=== PATIENT | female | born 1980 | race Caucasian/White ===

== ENCOUNTER 2018-10-04 15:10 | Emergency (ER) | payer OTHER ==
[2018-10-04 15:36] VITALS: BP 116/83; PULSE 98; O2SAT 100
[2018-10-04] MEDS ORDERED: solu-MEDROL 125 MG IM ONE (15:49)
[2018-10-04] MEDS ORDERED: solu-MEDROL 125 MG ONE (15:50)
--- NOTE | 2018-10-04 15:54 | ERPHSYRPT ---
- History of Present Illness Time Seen by Provider: 10/04/18 15:44 Source: patient Exam Limitations: no limitations Patient Subjective Stated Complaint: sore throat Triage Nursing Assessment: Pt c/o of throat pain x2 days, painful to swallow, swollen lymph nodes in neck, vitals wnl, rates pain 4/10, throat is red and swollen with white puscules, last intake was lunch yesterday, unable to drink any fluids Physician History: 38-year-old white female arrives with complaint of pain in her throat pain with swallowing in her throat feels like her throat has been swelling symptoms for 2 days no fevers some nausea no vomiting no shortness of breath. Past medical history: Patient denies Past surgical history includes cholecystectomy, exploratory laparotomy, tubal ligation, partial amputation of her thumb Social history positive tobacco use positive occasional alcohol use positive use of opioids in the past states clean at present Timing/Duration: day(s) (2 days) Severity: moderate Modifying Factors: Improves With: nothing Associated Symptoms: other (sore throat pain with swallowing feels like throat is swelling), No nausea, No vomiting, No abdominal pain, No shortness of breath , No heartburn, No diaphoresis, No cough, No chills, No chest pain, No fever, No headaches, No loss of appetite, No malaise, No rash, No syncope, No seizure, No weakness Allergies/Adverse Reactions: No Known Drug Allergies Allergy (Verified 10/04/18 15:36) Hx Influenza Vaccination/Date Given: No - Review of Systems Constitutional: No Fever, No Chills Eyes: No Symptoms Ears, Nose, & Throat: Throat Pain, Throat Swelling, Painful Swallowing, No Ear Pain, No Ear Discharge, No Hearing Changes, No Tinnitus, No Nose Pain, No Nose Congestion, No Nose Discharge, No Sinus Drainage, No Epistaxis, No Mouth Pain, No Mouth Swelling, No Loose Teeth, No Hoarse, No Snoring, No Stridor Respiratory: No Cough, No Dyspnea Cardiac: No Chest Pain, No Edema, No Syncope Abdominal/Gastrointestinal: Other (eating less because of throat pain), No Abdominal Pain, No Nausea, No Vomiting, No Diarrhea Musculoskeletal: No Back Pain, No Neck Pain Skin: No Rash Neurological: No Dizziness, No Focal Weakness, No Sensory Changes Psychological: No Symptoms Endocrine: No Symptoms All Other Systems: Reviewed and Negative - Past Medical History Pertinent Past Medical History: No - Past Surgical History Past Surgical History: Yes Gastrointestinal: Cholecystectomy, Exploratory Laparoscopy Other Surgical History: partial amputation of right thumb - Social History Smoking Status: Current every day smoker How long have you smoked: 21 years Exposure to second hand smoke: Yes Drug Use: none Patient Lives Alone: No - Nursing Vital Signs Nursing Vital Signs: Initial Vital Signs Temperature 98.6 F 10/04/18 15:21 Pulse Rate 98 H 10/04/18 15:21 Blood Pressure 116/83 10/04/18 15:21 O2 Sat by Pulse Oximetry 100 10/04/18 15:21 Pain Scale Pain Intensity 4 - Physical Exam General Appearance: mild distress, alert Eye Exam: PERRL/EOMI, eyes nml inspection Ears, Nose, Throat Exam: TMs normal, moist mucous membranes, TM abnormal (R), pharyngeal erythema, tonsillar exudate, No pharynx normal (throat erythematous mild edema of uvula), No dry mucous membranes, No TM abnormal (L) Neck Exam: normal inspection, non-tender, supple, full range of motion Respiratory Exam: normal breath sounds, lungs clear, No respiratory distress Cardiovascular Exam: regular rate/rhythm, normal heart sounds, normal peripheral pulses, capillary refill <2 sec Gastrointestinal/Abdomen Exam: soft, normal bowel sounds, No tenderness, No mass Back Exam: normal inspection, normal range of motion, No CVA tenderness, No vertebral tenderness Extremity Exam: normal inspection, normal range of motion, pelvis stable Neurologic Exam: alert, oriented x 3, cooperative, normal mood/affect, nml cerebellar function, nml station & gait, sensation nml, No motor deficits Skin Exam: normal color, warm, dry, No rash SpO2 Interpretation: normal (100%) SpO2: 100 Ordered Tests: Medication Summary Discontinued Medications Generic Name Dose Route Start Last Admin Trade Name Freq PRN Reason Stop Dose Admin Methylprednisolone Sodium Succinate 125 mg 10/04/18 15:49 10/04/18 15:53 Solu-Medrol 125 Mg IM 10/04/18 15:50 125 mg STAT ONE Administration Methylprednisolone Sodium Succinate Confirm 10/04/18 15:50 Solu-Medrol 125 Mg Administered 10/04/18 15:51 Dose 125 mg .ROUTE .[facility] Lab/Rad Data: Laboratory Results 10/04/18 Range/Units 16:00 Group A Strep Antibody NEGATIVE (NEGATIVE) - Progress Progress: improved Progress Note: 10/04/18 16:45 38-year-old white female arrives with complaint of sore throat she has pain with swallowing pharyngeal exudate. And mild pharyngeal edema and uvular edema. Patient's strep is negative. Patient has received Solu-Medrol 125 mg IM. Will give patient Zithromax. Send patient home with prednisone tapering dose. - Departure Time of Disposition: 16:46 Departure Disposition: Home Clinical Impression: Pharyngitis Qualifiers: Pharyngitis/tonsillitis etiology: unspecified etiology Qualified Code(s): J02.9 - Acute pharyngitis, unspecified Condition: Fair Critical Care Time: No Additional Instructions: Return home. Plenty of fluids. Zithromax as directed. Tapering dose of prednisone as directed. Follow-up with your family doctor if symptoms no better in 24 hours or become worse. Return for acute distress or for severe symptoms. Prescriptions: Azithromycin [Zithromax] 250 mg PO DAILY #4 tablet
[2018-10-04] MEDS ORDERED: Augmentin 500-125 Tablet PO ONE (16:48)
[2018-10-04] MEDS ORDERED: Zithromax 200MG/5 ML LIQUID PO ONE (16:52)
[2018-10-04] MEDS ORDERED: Zithromax 200MG/5 ML LIQUID ONE (16:53)
== END 2018-10-04 17:05 | disposition home or self-care (01) ==
LOC: EDSEX 15:10 → ED 15:10
DX: J02.9 Acute pharyngitis, unspecified (principal)
CPT/HCPCS: 87651; 96372; 99284; J2930; A9270-GY

== ENCOUNTER 2019-01-05 16:34 | Emergency (ER) | payer OTHER ==
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
[2019-01-05] MEDS ORDERED: TYLENOL 325 MG PO STA (17:39)
[2019-01-05] MEDS ORDERED: TYLENOL 325 MG ONE (17:42)
[2019-01-05 17:48] VITALS: BP 118/74; PULSE 80
[2019-01-05 17:54] VITALS: O2SAT 98
--- NOTE | 2019-01-05 23:00 | XRAY ---
Indication: Left lateral thigh pain 2 weeks. Two-dimensional sonogram and color Doppler imaging of the major venous vessels of the left leg was performed. Comparison: None No thrombus seen in the examined deep venous vessels of the left leg including greater saphenous vein. Veins demonstrate normal compressibility. Venous waveforms are normal with and without augmentation. Impression: Left leg negative for DVT. Comment: Preliminary report was given.
== END 2019-01-05 18:03 | disposition home or self-care (01) ==
LOC: ED 16:34
DX: M79.18 Myalgia, other site (principal); M79.652 Pain in left thigh
CPT/HCPCS: 93971; 99283; A9270-GY